=== PATIENT | male | born 1980 | race Caucasian/White ===

== ENCOUNTER 2018-11-17 16:48 | Emergency (ER) | payer OTHER ==
[2018-11-17 17:15] VITALS: BP 129/84
--- NOTE | 2018-11-17 17:38 | ED ---
Throat Pain/Nasal Congestion - HPI Summary HPI Summary: 37 year old male presents with bleeding from right ear today. he states that he was diagnosed with a sinus infection earlier today at his primary. he states he had sinus pressure for a week. he has been having headaches. denies any sore throat. denies any cough, chest pain or SOB. he states has had pressure in right ear. no change in hearing. - History of Current Complaint Chief Complaint: UCEar Time Seen by Provider: 11/17/18 17:29 - Allergies/Home Medications Allergies/Adverse Reactions: Allergies Allergy/AdvReac Type Severity Reaction Status Date / Time No Known Allergies Allergy Verified 11/17/18 17:15 Home Medications: Home Medications Amoxicillin 500 mg PO BID 11/17/18 [History Confirmed 11/17/18] PMH/Surg Hx/FS Hx/Imm Hx Endocrine/Hematology History: Denies: Hx Anticoagulant Therapy Respiratory History: Denies: Hx Asthma Infectious Disease History: No Infectious Disease History: Denies: Traveled Outside the [place] in Last 30 Days - Family History Known Family History: Positive: Non-Contributory - Social History Alcohol Use: None Substance Use Type: Reports: None Smoking Status (MU): Never Smoked Tobacco Review of Systems Negative: Fever Positive: Other - bleeding from right ear Negative: Chest Pain Negative: Shortness Of Breath All Other Systems Reviewed And Are Negative: Yes Physical Exam Triage Information Reviewed: Yes Vital Signs On Initial Exam: Initial Vitals Temp Pulse Resp BP Pulse Ox 98.5 F 59 12 129/84 100 11/17/18 17:08 11/17/18 17:08 11/17/18 17:08 11/17/18 17:08 11/17/18 17:08 Vital Signs Reviewed: Yes Appearance: Positive: Well-Appearing Skin: Positive: Warm, Dry Head/Face: Positive: Normal Head/Face Inspection Eyes: Positive: Normal, EOMI, ASHVIN, Conjunctiva Clear ENT: Positive: Pharynx normal, Nasal congestion, TMs normal - some fluid behind , Sinus tenderness, Other - abrasion near TM of right ear Respiratory/Lung Sounds: Positive: Clear to Auscultation, Breath Sounds Present Cardiovascular: Positive: Normal, RRR Musculoskeletal: Positive: Normal Neurological: Positive: Normal Psychiatric: Positive: Normal Diagnostics - Vital Signs Vital Signs Temp Pulse Resp BP Pulse Ox 11/17/18 17:08 98.5 F 59 12 129/84 100 - Laboratory Lab Statement: Any lab studies that have been ordered have been reviewed, and results considered in the medical decision making process. EENT Course/Dx - Course Course Of Treatment: 37 year old male presents with bleeding from right ear today. he states that he was diagnosed with a sinus infection earlier today at his primary. he states he had sinus pressure for a week. he has been having headaches. denies any sore throat. denies any cough, chest pain or SOB. he states has had pressure in right ear. no change in hearing. on exam has fluid behind TM without any erythema. blood present in right ear canal. removed blood and has scratch near TM but no TM rupture seen. told to continue amoxicillin as previously prescribed and can add on flonase for sinus congestion. patient is in pre-htn range so can follow up with primary about such. patient understand and agrees with plan. - Differential Diagnoses Differential Diagnoses: Otitis Externa, Otitis Media, Perforated TM - Diagnoses Provider Diagnoses: Acute sinusitis, Abrasion of right ear canal Discharge - Sign-Out/Discharge Documenting (check all that apply): Patient Departure All imaging exams completed and their final reports reviewed: No Studies - Discharge Plan Condition: Good Disposition: HOME Referrals: Russ Patino DO [Primary Care Provider] - Additional Instructions: continue antibiotic as previously prescribed continue sudafed daily use nasal saline in nose for sinus congestion as needed Can add on flonase which is over the counter one spray each nostril for nasal congestion Return to if develop any new or worsening symptoms - Billing Disposition and Condition Condition: GOOD Disposition: Home - Attestation Statements Provider Attestation: I was available for consult. This patient was seen by the [facility]. The patient was not presented to, seen by, or examined by me. -Alberto
== END 2018-11-17 17:42 | disposition home or self-care (01) ==
LOC: UCEAST 16:48
DX: J01.90 Acute sinusitis, unspecified (principal); S00.411A Abrasion of right ear, initial encounter; X58.XXXA Exposure to other specified factors, initial encounter; Y92.9 Unspecified place or not applicable
CPT/HCPCS: 99212; G0463